=== PATIENT | female | born 1960 | race Caucasian/White ===

== ENCOUNTER 2021-02-20 17:26 | Emergency (ER) | payer OTHER | END 2021-02-20 21:24 | disposition home or self-care (01) | LOC: FER 17:26 | DX: M79.662 Pain in left lower leg (principal); E11.9 Type 2 diabetes mellitus without complications; I10 Essential (primary) hypertension; E78.5 Hyperlipidemia, unspecified; Z91.81 History of falling; Z88.1 Allergy status to other antibiotic agents; Z88.0 Allergy status to penicillin; Z79.899 Other long term (current) drug therapy; Z79.84 Long term (current) use of oral hypoglycemic drugs | CPT/HCPCS: 93971 ==

== ENCOUNTER 2021-05-12 19:43 | Emergency (ER) | payer OTHER ==
[2021-05-12 20:31] LABS: BASOPHIL 0.4 % (0-2); EOSINOPHIL 3.7 % (0-5); HCT 41.3 % (37.0-47.0); HGB 13.1 g/dl (12.5-16.0); LYMPHOCYTE 24.5 % (15-48); MCH 30.3 pg (25.0-31.0); MCHC 31.7 g/dL (32.0-36.0); MCV 95.6 fL (78.0-100.0); MONOCYTE 7.5 % (0-12); MPV 10.5 fL (6.0-9.5); NEUTROPHIL 63.6 % (41-80); NRBC 0; PLT 297 K/uL (150-400); RBC 4.32 M/uL (4.20-5.40); RDW 12.7 % (11.5-14.0); WBC 10.5 K/uL (4.0-10.5)
[2021-05-12 20:35] LABS: PROTHROMBIN TIME 12.6 SECONDS (11.8-13.4); PTT 28.1 SECONDS (24.4-34.7)
[2021-05-12 20:42] LABS: ALBUMIN 3.9 g/dL (3.4-5.0); BILIRUBIN - TOTAL 0.1 mg/dL (0.2-1.0); BUN/CREAT RATIO (CALC) 16.4 RATIO; CREATININE 1.34 mg/dL (0.51-0.95); GLOBULIN (CALCULATION) 4.2 g/dL; TOTAL PROTEIN 8.1 g/dL (6.4-8.2)
[2021-05-12] MEDS ORDERED: ATARAX25 MG PO (22:44)
== END 2021-05-12 22:59 | disposition home or self-care (01) ==
LOC: FER 19:43
PROVIDERS: Emergency Medicine Emergency Medical Services
DX: R07.9 Chest pain, unspecified (principal); E11.9 Type 2 diabetes mellitus without complications; I10 Essential (primary) hypertension; Z88.0 Allergy status to penicillin; Z82.49 Family history of ischemic heart disease and other diseases of the circulatory system; Z79.84 Long term (current) use of oral hypoglycemic drugs; Z79.899 Other long term (current) drug therapy
CPT/HCPCS: 36415; 71045; 80053; 84484; 85025; 85610; 85730; 93005; J2060